=== PATIENT | female | born 1955 | race Caucasian/White ===

== ENCOUNTER 2016-11-15 16:57 | Emergency (ER) | payer BC, OTHER ==
[2016-11-15] MEDS ORDERED: KETOROLAC TROMETHAMINE 60 MG/2 ML VIAL ONE (17:57)
[2016-11-15] MEDS ORDERED: ONDANSETRON 4 MG ODT TAB ONE (17:57)
--- NOTE | 2016-11-15 20:58 | RAD ---
PA CHEST AND LEFT RIB SERIES. HISTORY: Left posterior rib pain status post fall. Frontal chest radiograph and frontal and oblique left rib radiographs dated 11/15/2016. COMPARISON: 12/05/2015. FINDINGS: FOCAL AIRSPACE OPACITY: No gross airspace consolidation. PLEURAL EFFUSION: None. CARDIOMEDIASTINAL SILHOUETTE: Nonenlarged. PNEUMOTHORAX: None identified. Apical fibrotic change is noted. OSSEOUS STRUCTURES: No displaced rib fracture identified. IMPRESSION: No pleural effusion, pneumothorax or displaced acute rib fracture identified.
== END 2016-11-15 19:12 | disposition home or self-care (01) ==
LOC: ED 16:57
DX: S29.9XXA Unspecified injury of thorax, initial encounter (principal); W03.XXXA Other fall on same level due to collision with another person, initial encounter; Y92.69 Other specified industrial and construction area as the place of occurrence of the external cause; Y99.0 Civilian activity done for income or pay
CPT/HCPCS: 71101; 99283 ×2; 96372; J1885; A9270